=== PATIENT | female | born 2000 | race Caucasian/White ===

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

== ENCOUNTER → 2019-07-11 | Outpatient (CLI) | payer BC ==
--- NOTE | 2019-07-11 16:18 | CT ---
EXAMINATION TYPE: CT abdomen pelvis wo con DATE OF EXAM: 07/11/2019 COMPARISON: 08/30/2017 INDICATION: Abdominal pain DLP: 1181 mGycm, Automated exposure control for dose reduction was used. CONTRAST: 0 mL of Isovue 300. Study performed with Oral Contrast TECHNIQUE: Axial images were obtained from above the diaphragm to the pubic rami in the axial plane a t 5 mm thick sections. Reconstructed images are reviewed on the computer in the coronal plane. FINDINGS: Limited CT sections are obtained the lung bases. The lung bases are clear. CT ABDOMEN: Liver: There is moderate fatty infiltration liver. No discrete masses or cysts are evident. Spleen: Normal Pancreas: Normal Adrenal glands: The adrenal glands are normal. Gallbladder: Surgically absent Kidneys: No masses are evident. No hydronephrosis is present. No cysts are present. No renal stone s are evident. Aorta: Normal Inferior vena cava: Normal. CT PELVIS: Loops of bowel within the abdomen and pelvis are normal. There are loops of bowel which are incom pletely distended or lack oral contrast limiting their evaluation. Appendix: Normal as visualized. Urinary bladder: Normal. Genitourinary structures: Uterus is unremarkable. Adnexal regions are within normal limits. No free f luid is within the pelvis. Osseous structures: No suspicious lytic or sclerotic lesions. IMPRESSIONS: 1. No suspicious acute changes to account for abdominal pain.
== END | disposition home or self-care (01) ==
LOC: RADCTMAIN 14:18
PROVIDERS: ATTEND Family Medicine
DX: R10.9 Unspecified abdominal pain (principal)
CPT/HCPCS: 74176

== ENCOUNTER 2019-12-18 16:19 | Emergency (ER) | payer BC ==
[2019-12-18] MEDS ORDERED: SODIUM CHLORIDE 0.9% 1,000 ML IV STA (16:45)
--- NOTE | 2019-12-18 16:50 | ED ---
Abdominal Pain HPI - General Chief Complaint: Abdominal Pain Stated Complaint: Abd.pain Time Seen by Provider: 12/18/19 16:38 Source: patient Mode of arrival: ambulatory Limitations: no limitations - History of Present Illness Initial Comments: Patient is a 19-year-old female, , 11 week presenting to the emergency department with a chief complaint of right lower quadrant abdominal pain. States the pain started last night at 2100. States the pain appears to persistent and sharp in nature. States the pain is not related to by mouth in take. Does report some nausea but states this is her baseline throughout her whole . Denies any vomiting or diarrhea. Denies any abdominal loading. States she took Gas-X last night and was able to pass flatus but did not improve her pain. Denies any night sweats fevers or chills. Has history of cholecystectomy. No back pain or chest pain or shortness of breath. - Related Data Home Medications Medication Instructions Recorded Confirmed Ibuprofen 800 mg PO Q8H PRN 12/24/18 02/16/19 metFORMIN HCL [Glucophage] 500 mg PO DAILY 02/16/19 02/16/19 Previous Rx's Medication Instructions Recorded Cephalexin [Keflex] 500 mg PO BID 3 Days #6 cap 12/18/19 Allergies Allergy/AdvReac Type Severity Reaction Status Date / Time No Known Allergies Allergy Verified 12/18/19 16:20 Review of Systems ROS Statement: Those systems with pertinent positive or pertinent negative responses have been documented in the HPI. ROS Other: All systems not noted in ROS Statement are negative. Past Medical History Past Medical History: Diabetes Mellitus Additional Past Medical History / Comment(s): POLYCYSTIC OVARIAN SYNDROME, migraines, diet control diabetic, History of Any Multi-Drug Resistant Organisms: None Reported Past Surgical History: Cholecystectomy, Ear Surgery Additional Past Surgical History / Comment(s): tubes in peterson ears x 2. , cholecystectomy on monday august 28, 2017 Past Anesthesia/Blood Transfusion Reactions: No Reported Reaction Past Psychological History: Anxiety, Depression Smoking Status: Never smoker Past Alcohol Use History: None Reported Past Drug Use History: None Reported - Past Family History Mother Family Medical History: No Reported History General Exam Limitations: no limitations General appearance: alert, in no apparent distress, obese Head exam: Present: atraumatic, normocephalic, normal inspection Eye exam: Present: normal appearance Pupils: Present: normal accommodation ENT exam: Present: normal exam, normal oropharynx, mucous membranes moist, TM's normal bilaterally, normal external ear exam Neck exam: Present: normal inspection, full ROM. Absent: tenderness Respiratory exam: Present: normal lung sounds bilaterally. Absent: respiratory distress, wheezes Cardiovascular Exam: Present: regular rate, normal rhythm, normal heart sounds GI/Abdominal exam: Present: soft, tenderness (Mild tenderness along the border between right lower right upper quadrant. Negative McBurney point tenderness. Negative Rovsing negative after negative psoas.). Absent: distended, guarding, rebound, rigid Extremities exam: Present: normal inspection, full ROM, normal capillary refill Back exam: Present: normal inspection, full ROM. Absent: tenderness Neurological exam: Present: alert, oriented X3 Psychiatric exam: Present: normal affect, normal mood Skin exam: Present: warm, dry, intact, normal color Course Vital Signs 12/18/19 12/18/19 12/18/19 16:20 16:23 17:23 Temperature 98.1 F Pulse Rate 112 H 92 Respiratory 20 20 20 Rate Blood Pressure 121/74 115/70 O2 Sat by Pulse 99 99 Oximetry 12/18/19 12/18/19 18:00 19:00 Temperature Pulse Rate 96 95 Respiratory 20 20 Rate Blood Pressure 125/75 125/78 O2 Sat by Pulse 99 99 Oximetry Medical Decision Making - Medical Decision Making Patient is a 19-year-old female, , 11 week female presenting to emergency department with a chief complaint of abdominal pain. Symptoms began late last night without any improvement that day. Exam patient does have right- sided abdominal tenderness on the border between the right upper and right lower quadrant. Negative McBurney point, negative signs for appendicitis. Negative Byers sign. I have low suspicion for appendicitis. Nauseous at baseline during . No vomiting or diarrhea. CBC is unremarkable. CMP shows mild decrease in BUN and creatinine. GFR normal. Anuria patient does appear to have a symptomatically bacteriuria and will be treated accordingly. No vaginal bleeding or discharge of any kind. HCG serum at 58K. vitals are stable. Ultrasound shows a viable intrauterine . Patient was given 1 L of fluids in the ED. Reports some improvement in symptoms. Patient advised to follow-up with her OB, Dr. Conner. Strict return parameters were thoroughly discussed patient is understanding and agreeable. Case discussed with physician. - Lab Data Result diagrams: 12/18/19 16:40 12/18/19 16:40 Lab Results 12/18/19 12/18/19 12/18/19 Range/Units 16:40 16:40 19:30 WBC 10.0 (4.0-11.0) k/uL RBC 4.23 (3.80-5.40) m/uL Hgb 13.7 (11.4-16.0) gm/dL Hct 40.7 (34.0-46.0) % MCV 96.2 (80.0-100.0) fL MCH 32.2 (25.0-35.0) pg MCHC 33.5 (31.0-37.0) g/dL RDW 12.5 (11.5-15.5) % Plt Count 412 (150-450) k/uL Neutrophils % 66 % Lymphocytes % 27 % Monocytes % 4 % Eosinophils % 1 % Basophils % 1 % Neutrophils # 6.6 (1.3-7.7) k/uL Lymphocytes # 2.7 (1.0-4.8) k/uL Monocytes # 0.4 (0-1.0) k/uL Eosinophils # 0.1 (0-0.7) k/uL Basophils # 0.1 (0-0.2) k/uL Sodium 135 L (137-145) mmol/L Potassium 4.4 (3.5-5.1) mmol/L Chloride 105 (98-107) mmol/L Carbon Dioxide 19 L (22-30) mmol/L Anion Gap 11 mmol/L BUN 5 L (7-17) mg/dL Creatinine 0.37 L (0.52-1.04) mg/dL Est GFR (CKD-EPI)AfAm >90 (>60 ml/min/1.73 sqM) Est GFR (CKD-EPI)NonAf >90 (>60 ml/min/1.73 sqM) Glucose 112 H (74-99) mg/dL POC Glucose (mg/dL) 116 H (75-99) mg/dL POC Glu Physician Obstetrician ID Thursday, Kerry Calcium 10.1 (8.4-10.2) mg/dL Total Bilirubin 0.4 (0.2-1.3) mg/dL AST 25 (14-36) U/L ALT 12 (4-34) U/L Alkaline Phosphatase 82 (38-126) U/L Total Protein 7.9 (6.3-8.2) g/dL Albumin 4.7 (3.5-5.0) g/dL Amylase <30 L (30-110) U/L Lipase 58 (23-300) U/L HCG, Quant 00820.0 mIU/mL Urine Color Urine Appearance (Clear) Urine pH (5.0-8.0) Ur Specific Dougherty (1.001-1.035) Urine Protein (Negative) Urine Glucose (UA) (Negative) Urine Ketones (Negative) Urine Blood (Negative) Urine Nitrite (Negative) Urine Bilirubin (Negative) Urine Urobilinogen (<2.0) mg/dL Ur Leukocyte Esterase (Negative) Urine RBC (0-5) /hpf Urine WBC (0-5) /hpf Ur Squamous Epith Cells (0-4) /hpf Urine Bacteria (None) /hpf Urine Mucus (None) /hpf 12/18/19 Range/Units 19:36 WBC (4.0-11.0) k/uL RBC (3.80-5.40) m/uL Hgb (11.4-16.0) gm/dL Hct (34.0-46.0) % MCV (80.0-100.0) fL MCH (25.0-35.0) pg MCHC (31.0-37.0) g/dL RDW (11.5-15.5) % Plt Count (150-450) k/uL Neutrophils % % Lymphocytes % % Monocytes % % Eosinophils % % Basophils % % Neutrophils # (1.3-7.7) k/uL Lymphocytes # (1.0-4.8) k/uL Monocytes # (0-1.0) k/uL Eosinophils # (0-0.7) k/uL Basophils # (0-0.2) k/uL Sodium (137-145) mmol/L Potassium (3.5-5.1) mmol/L Chloride (98-107) mmol/L Carbon Dioxide (22-30) mmol/L Anion Gap mmol/L BUN (7-17) mg/dL Creatinine (0.52-1.04) mg/dL Est GFR (CKD-EPI)AfAm (>60 ml/min/1.73 sqM) Est GFR (CKD-EPI)NonAf (>60 ml/min/1.73 sqM) Glucose (74-99) mg/dL POC Glucose (mg/dL) (75-99) mg/dL POC Glu Physician Obstetrician ID Calcium (8.4-10.2) mg/dL Total Bilirubin (0.2-1.3) mg/dL AST (14-36) U/L ALT (4-34) U/L Alkaline Phosphatase (38-126) U/L Total Protein (6.3-8.2) g/dL Albumin (3.5-5.0) g/dL Amylase (30-110) U/L Lipase (23-300) U/L HCG, Quant mIU/mL Urine Color Yellow Urine Appearance Clear (Clear) Urine pH 5.0 (5.0-8.0) Ur Specific Dougherty 1.027 (1.001-1.035) Urine Protein Trace H (Negative) Urine Glucose (UA) Negative (Negative) Urine Ketones 1+ H (Negative) Urine Blood Negative (Negative) Urine Nitrite Negative (Negative) Urine Bilirubin Negative (Negative) Urine Urobilinogen <2.0 (<2.0) mg/dL Ur Leukocyte Esterase Trace H (Negative) Urine RBC 1 (0-5) /hpf Urine WBC 2 (0-5) /hpf Ur Squamous Epith Cells 4 (0-4) /hpf Urine Bacteria Rare H (None) /hpf Urine Mucus Moderate H (None) /hpf Disposition Clinical Impression: Abdominal pain during , Asymptomatic bacteriuria Disposition: HOME SELF-CARE Condition: Stable Instructions (If sedation given, give patient instructions): Abdominal Pain in (ED) Additional Instructions: Take prescribed medication as directed. Follow-up with primary care. Return to emergency department with symptoms worsen. Prescriptions: Cephalexin [Keflex] 500 mg PO BID 3 Days #6 cap Is patient prescribed a controlled substance at d/c from ED?: No Referrals: Ariel Kelley MD [Primary Care Provider] - 1-2 days Time of Disposition: 20:03
[2019-12-18 16:57] LABS: Basophils % (A) 1 %; Eosinophils # (A) 0.1 k/uL (0-0.7); Eosinophils % (A) 1 %; HCT 40.7 % (34.0-46.0); HGB 13.7 gm/dL (11.4-16.0); Lymphocytes # (A) 2.7 k/uL (1.0-4.8); Lymphocytes % (A) 27 %; MCH 32.2 pg (25.0-35.0); MCHC 33.5 g/dL (31.0-37.0); MCV 96.2 fL (80.0-100.0); Mean Platelet Volume 7.5; Monocytes # (A) 0.4 k/uL (0-1.0); Monocytes % (A) 4 %; Neutrophils # (A) 6.6 k/uL (1.3-7.7); Neutrophils % (A) 66 %; Platelet Count 412 k/uL (150-450); RBC 4.23 m/uL (3.80-5.40); RDW 12.5 % (11.5-15.5)
[2019-12-18 16:58] LABS: Basophils # (A) 0.1 k/uL (0-0.2)
[2019-12-18 18:28] LABS: ALT 12 U/L (4-34); AST 25 U/L (14-36); African American GFR (CKD) >90 (>60 ml/min/1.73 sqM); Albumin 4.7 g/dL (3.5-5.0); Alkaline Phosphatase 82 U/L (38-126); Amylase <30 U/L (30-110); Anion Gap 11 mmol/L; Blood Urea Nitrogen 5 mg/dL (7-17); Calcium 10.1 mg/dL (8.4-10.2); Carbon Dioxide 19 mmol/L (22-30); Chloride 105 mmol/L (98-107); Glucose 112 mg/dL (74-99); Non-African American GFR(CKD) >90 (>60 ml/min/1.73 sqM); Potassium 4.4 mmol/L (3.5-5.1); Sodium 135 mmol/L (137-145); Total Bilirubin 0.4 mg/dL (0.2-1.3); Total Protein 7.9 g/dL (6.3-8.2)
--- NOTE | 2019-12-18 18:44 | US ---
EXAMINATION TYPE: Transabdominal DATE OF EXAM: 12/18/2019 6:32 PM COMPARISON: NONE CLINICAL HISTORY: abd pain . RLQ pain with EXAM PERFORMED: Transabdominal (TA) EXAM MEASUREMENTS: GESTATIONAL AGE / DATING Physician Established: (11 weeks/1 days) EDC: 07/07/2020 Dates by LMP: does not correlate per patient Dates by First Scan: No previous this is first scan Dates by Current Scan for: (11 weeks/3 days) EDC: 07/05/2020 MATERNAL ANATOMY Uterus: 12.0 x 6.7 x 7.1 cm Right Ovary: 2.9 x 1.7 x 2.6 cm Left Ovary: 2.5 x 1.7 x 2.4 cm Post CDS / Adnexa: wnl Presence of free fluid: none GESTATION / SURVEY CRL: 4.6 cm (11 weeks/3 days) Yolk Sac (normal less than 6mm): 0.5 cm Heart Rate: 165 bpm Rhythm: Normal IUP: Viable IUP Date of LMP: does not correlate per patient Beta HcG (if available): Viable IUP that correlates with Doctors due date provided by patient. IMPRESSION: No complicating process seen.
[2019-12-18 19:32] LABS: Glucose,Whole Blood 116 mg/dL (75-99)
[2019-12-18 19:47] LABS: Appearance,Urine Clear (Clear); Bacteria,Urine Rare /hpf; Bilirubin,Urine Negative (Negative); Blood,Urine Negative (Negative); Color,Urine Yellow; Glucose,Urine (UA) Negative (Negative); Ketones,Urine 1+ (Negative); Leukocyte Esterase,Urine Trace (Negative); Mucus,Urine Moderate /hpf; Nitrite,Urine Negative (Negative); Protein,Urine Trace (Negative); RBC,Urine 1 /hpf (0-5); Specific Gravity,Urine 1.027 (1.001-1.035); Squamous Epithelial Cell,Urine 4 /hpf (0-4); Urobilinogen,Urine <2.0 mg/dL (<2.0); WBC,Urine 2 /hpf (0-5)
[2019-12-18 20:12] VITALS: BP 128/87; PULSE 87; RESP 18; TEMP 98.4
== END 2019-12-18 20:12 | disposition home or self-care (01) ==
LOC: EC 16:19
DX: O26.891 Other specified pregnancy related conditions, first trimester (principal); R10.31 Right lower quadrant pain; O99.89 Other specified diseases and conditions complicating pregnancy, childbirth and the puerperium; R82.71 Bacteriuria; O99.281 Endocrine, nutritional and metabolic diseases complicating pregnancy, first trimester; E11.9 Type 2 diabetes mellitus without complications; Z3A.11 11 weeks gestation of pregnancy; Z79.84 Long term (current) use of oral hypoglycemic drugs; Z90.49 Acquired absence of other specified parts of digestive tract
CPT/HCPCS: 36415; 76801; 80053; 81001; 82150; 83690; 84702; 85025; 96360; 96361; 99284

== ENCOUNTER 2020-03-29 09:17 | Observation (INO) | payer BC ==
[2020-03-29] MEDS ORDERED: AMPICILLIN 2,000 MG in SODIUM CHLORIDE 0.9% 100 ML IVPB STA (10:07)
[2020-03-29] MEDS: BETAMET ACET-BETAMETH SOD PHOS 6 MG/ML MDV IM SCH (10:51)
[2020-03-29] MEDS: LACTATED RINGERS 1,000 ML IV SCH (10:55)
--- NOTE | 2020-03-29 11:35 | US ---
EXAMINATION TYPE: US OB >= 14 wk fetus DATE OF EXAM: 03/29/2020 COMPARISON: None CLINICAL HISTORY: srom yesterday TECHNIQUE: Transabdominal (TA) GESTATIONAL AGE / DATING Physician Established: (25 weeks/5days) EDC: 07/07/2020 Dates by LMP: 25 weeks/5days) EDC: 07/07/2020 Dates by First Scan: (26 weeks/1 days) EDC: 07/05/2020 Dates by Current Scan: (28 weeks/0 days) EDC: 06/21/2020 SURVEY IUP: Single PLACENTA: Fundal PREVIA: No Previa RACHELL: 19.7 cm Upper limits of normal CERVICAL LENGTH (transabdominal: norm > 3.0cm): 4.3 cm BIOMETRY PRESENTATION: Vertex LIE: Longitudinal BPD: 6.7 cm 27 weeks / 1 days HC: 25.8 cm 28 weeks / 0 days AC: 24.9 cm 29 weeks / 1 days FL: 5.16 cm 27 weeks / 4 days ESTIMATED WEIGHT IN GRAMS: 1211 grams ESTIMATED WEIGHT IN LBS/OZ: 2 lbs. 11 oz. WEIGHT PERCENTAGE BASED ON ESTABLISHED DATES: >98% HC/AC: 1.04 Normal FL/AC: 21% Normal HEART RATE: 155 bpm RHYTHM: Normal Viable IUP with an KEVIN of 06/21/[address] Conner in room at time of exam IMPRESSION: Single viable intrauterine corresponding to ultrasound age 20 weeks 0 days with estimated d ate of delivery 06/21/2020 by today's exam, normal amniotic fluid index
[2020-03-29 13:08] LABS: Basophils % (A) 0 %; Eosinophils # (A) 0.1 k/uL (0-0.7); Eosinophils % (A) 0 %; HCT 36.2 % (34.0-46.0); HGB 11.7 gm/dL (11.4-16.0); Lymphocytes # (A) 1.3 k/uL (1.0-4.8); Lymphocytes % (A) 10 %; MCH 32.3 pg (25.0-35.0); MCHC 32.3 g/dL (31.0-37.0); MCV 99.9 fL (80.0-100.0); Mean Platelet Volume 7.5; Monocytes # (A) 0.3 k/uL (0-1.0); Monocytes % (A) 3 %; Neutrophils # (A) 10.4 k/uL (1.3-7.7); Neutrophils % (A) 85 %; Platelet Count 343 k/uL (150-450); RBC 3.63 m/uL (3.80-5.40); WBC 12.2 k/uL (3.8-10.6)
--- NOTE | 2020-03-29 13:21 | P.HPOB ---
History of Present Illness H&P Date: 03/29/20 Chief Complaint: IUP @ 25 5/7 weeks, LOF This is a 20-year-old 1 para 0 at 25-5/7 weeks with an estimated date of confinement of 07/07/2020. EDC is based on 8 week ultrasound. Patient is a known type II diabetic and has been using metformin and PM insulin for BS c ontrol. Patient has been seen [facility] in conjunction with myself for care. Patient states she noted yesterday a little bit of increased leakage of watery/mucus discharge after urination. Patient stated she became a little crampy with discharge again today therefore presented to OB triage. While in OB triage heart tones were noted to be normal, immature was obtained and found to be positive. records are reviewed on labs she has a blood type of O+, rubella status is nonimmune, RPR is nonreactive, hepatitis B surface antigen is negative, HIV is negative, patient's hemoglobin A1c on December 14 was 7.6. Review of Systems Constitutional: Denies chills, Denies fatigue, Denies fever Ears, nose, mouth and throat: Denies headache Cardiovascular: Reports leg edema Respiratory: Denies dyspnea Gastrointestinal: Denies constipation, Denies diarrhea, Denies nausea, Denies vomiting Genitourinary: Reports Past Medical History Past Medical History: Diabetes Mellitus Additional Past Medical History / Comment(s): POLYCYSTIC OVARIAN SYNDROME, migraines, diet control diabetic, History of Any Multi-Drug Resistant Organisms: None Reported Past Surgical History: Cholecystectomy, Ear Surgery Additional Past Surgical History / Comment(s): tubes in peterson ears x 2. , cholecystectomy on monday august 28, 2017 Past Anesthesia/Blood Transfusion Reactions: No Reported Reaction Smoking Status: Never smoker - Past Family History Mother Family Medical History: No Reported History Medications and Allergies Home Medications Medication Instructions Recorded Confirmed Type metFORMIN HCL [Glucophage] 500 mg PO BID 02/16/19 03/29/20 History Insulin NPH Human Isophane 46 units SQ HS 03/29/20 03/29/20 History [NovoLIN N] Pnv,Calcium 72/Iron/Folic Acid 1 each PO DAILY 03/29/20 03/29/20 History [ Plus Tablet] Allergies Allergy/AdvReac Type Severity Reaction Status Date / Time No Known Allergies Allergy Verified 02/02/20 16:20 Exam Osteopathic Statement: *. No significant issues noted on an osteopathic str uctural exam other than those noted in the History and Physical/Consult. Intake and Output 03/28/20 03/29/20 03/29/20 22:59 06:59 14:59 Other: Weight 119.295 kg Targeted physical exam is performed in this date and [employer] a well-nourished well-developed female in no obvious distress, breathing is noted to be nonlabored heart has a regular rhythm abdomen is gravid operative for gestational age, heart tones are appropriate for gestational age, positive amnio sure is reviewed with the patient cervical exam is deferred at this time. Results Result Diagrams: 03/29/20 12:37 Abnormal Lab Results - Last 24 Hours (Table) 03/29/20 Range/Units 12:37 WBC 12.2 H (3.8-10.6) k/uL RBC 3.63 L (3.80-5.40) m/uL Neutrophils # 10.4 H (1.3-7.7) k/uL Assessment and Plan (1) 25 weeks gestation of Current Visit: Yes Status: Acute Code(s): Z3A.25 - 25 WEEKS GESTATION OF SNOMED Code(s): 78315538 (2) ROM (rupture of membranes), premature Current Visit: Yes Status: Acute Code(s): O42.90 - CHARITO ROM, 7TH0 BETW RUPT & ONST LABR, UNSP WEEKS OF GEST SNOMED Code(s): 02345373 (3) Diabetes Current Visit: Yes Status: Acute Code(s): E11.9 - TYPE 2 DIABETES MELLITUS WITHOUT COMPLICATIONS SNOMED Code(s): 49582619 Plan: On her initial assessment ultrasound/betamethasone/ampicillin therapy was begun. Bedside ultrasound (for which I was present for), amniotic fluid index was noted to 19.7, efw 2-11 (1211 gm) 98%ile, CL 4.3 TA measurement, baby was noted to be in vertex presentation. Patient had no further leaking while in triage. Her under buttocks drape was noted to be dry. Given her RACHELL of 19.7 we'll monitor patient here at [facility], unless increased leakage is noted. I will plan to repeat amniotic fluid index at 1800. Should patient start leaking fluid while here on the unit MFM consult for possible transfer of care will be made. I do suspect this is a false positive amnisure given her amniotic fluid index of 19. Plan to keep the patient nothing by mouth until follow-up ultrasound at 1800.
[2020-03-29 16:07] LABS: Appearance,Urine Clear (Clear); Bilirubin,Urine Negative (Negative); Blood,Urine Negative (Negative); Color,Urine Yellow; Glucose,Urine (UA) Negative (Negative); Hyaline Casts,Urine 1 /lpf (0-2); Ketones,Urine Negative (Negative); Leukocyte Esterase,Urine Small (Negative); Mucus,Urine Rare /hpf; Nitrite,Urine Negative (Negative); Protein,Urine Negative (Negative); Squamous Epithelial Cell,Urine 2 /hpf (0-4); Urobilinogen,Urine <2.0 mg/dL (<2.0); WBC,Urine 4 /hpf (0-5)
[2020-03-29] MEDS: AMPICILLIN 1,000 MG in SODIUM CHLORIDE 0.9% 50 ML IVPB SCH ×3 (16:11→23:38)
--- NOTE | 2020-03-29 16:33 | P.PN ---
Progress Note - Text Progress Note Date: 03/29/20 In to evaluate patient for any further leaking of fluid, mucus. Patient states when she was up to the bathroom she did note a couple of trips. She denies any leakage in the bed and she has been sitting up and moving around. On physical exam vaginal opening is dry no leaking with cough no leaking is noted or drainage. Cervix appears posterior soft closed. Patient states she is noting some occasional menstrual-like cramps but appears comfortable, no vaginal bleeding is noted. Will plan to continue observation, repeat ultrasound for RACHELL due at 1800 Plan of observation is discussed with the patient and father of the baby questions are answered, will continue to monitor closely
--- NOTE | 2020-03-29 19:57 | US ---
EXAMINATION TYPE: US OB limited DATE OF EXAM: 03/29/2020 COMPARISON: US same day CLINICAL HISTORY: recheck rachell at 1800. 25 and 03/22. Recheck RACHELL. Reported spontaneous rupture of membr anes yesterday. EXAM PERFORMED: Transabdominal (TA) GESTATIONAL AGE / DATING Physician Established: (25 weeks/5 days) EDC: 07/07/2020 No growth performed on today?s study per ordering physician SURVEY RACHELL: 18.4 cm Upper limits of normal Earlier exam same date 19.7 cm. HEART RATE: 167 bpm RHYTHM: Normal IMPRESSION: 1. RACHELL of 18.4 cm at 1930 hours. This measured 19.7 at 1025 hours same date.
[2020-03-29] MEDS ORDERED: INSULIN NPH 300 UNIT/3 ML VIAL SQ SCH (21:00)
[2020-03-29 21:10] LABS: Glucose,Whole Blood 190 mg/dL (75-99)
[2020-03-29] MEDS: metFORMIN 500 MG TAB PO SCH (23:29)
[2020-03-30] MEDS: AMPICILLIN 1,000 MG in SODIUM CHLORIDE 0.9% 50 ML IVPB SCH ×3 (04:04→12:46)
[2020-03-30] MEDS: LACTATED RINGERS 1,000 ML IV SCH (04:06)
[2020-03-30] MEDS ORDERED: LACTATED RINGERS 1,000 ML IV SCH (04:15)
[2020-03-30 06:27] LABS: Glucose,Whole Blood 213 mg/dL (75-99)
[2020-03-30] MEDS ORDERED: metFORMIN 500 MG TAB PO SCH (07:30)
[2020-03-30] MEDS: metFORMIN 500 MG TAB PO SCH (08:26)
[2020-03-30 08:40] VITALS: BP 114/72; PULSE 110; RESP 16; TEMP 97.1
--- NOTE | 2020-03-30 08:51 | P.PN ---
Subjective Progress Note Date: 03/30/20 Principal diagnosis: IUP @ 25 5/7 weeks, watery discharge Overnight patient states she did have a few drops while on the toilet. Patient has had no discharge noted on the mother's pad overnight. Patient has had no bleeding overnight. Patient states she has had minimal bilateral groin cramping. Fetus has been active. Heart tones have been dopplered last night and this morning normal in nature. Objective - Vital Signs Vital signs: Vital Signs Temp 97.1 F L 03/30/20 08:00 Pulse 110 H 03/30/20 08:00 Resp 16 03/30/20 08:00 BP 114/72 03/30/20 08:00 Pulse Ox 99 03/30/20 00:00 Intake & Output 03/29/20 03/30/20 03/30/20 18:59 06:59 18:59 Weight 119.295 kg Other: # Voids 2 1 - Constitutional General appearance: Present: average body habitus, cooperative, no acute distress - Gastrointestinal Gastrointestinal Comment(s): Abdomen gravid nontender - Genitourinary Genitourinary Comment(s): Inspection of patient's vaginal vault reveals no leakage of fluid, attempted to elicit leaking with cough, Valsalva no leakage noted by myself for RN. - Psychiatric Psychiatric: Present: A&O x's 3, appropriate affect, intact judgment & insight - Labs CBC & Chem 7: 03/29/20 12:37 Labs: Abnormal Lab Results - Last 24 Hours (Table) 03/29/20 03/29/20 03/29/20 Range/Units 12:37 13:00 21:09 WBC 12.2 H (3.8-10.6) k/uL RBC 3.63 L (3.80-5.40) m/uL Neutrophils # 10.4 H (1.3-7.7) k/uL POC Glucose (mg/dL) 190 H (75-99) mg/dL Ur Leukocyte Esterase Small H (Negative) Urine Mucus Rare H (None) /hpf 03/30/20 Range/Units 06:25 WBC (3.8-10.6) k/uL RBC (3.80-5.40) m/uL Neutrophils # (1.3-7.7) k/uL POC Glucose (mg/dL) 213 H (75-99) mg/dL Ur Leukocyte Esterase (Negative) Urine Mucus (None) /hpf Assessment and Plan (1) 25 weeks gestation of Current Visit: Yes Status: Acute Code(s): Z3A.25 - 25 WEEKS GESTATION OF SNOMED Code(s): 47617039 (2) ROM (rupture of membranes), premature Current Visit: Yes Status: Acute Code(s): O42.90 - CHARITO ROM, 7TH0 BETW RUPT & ONST LABR, UNSP WEEKS OF GEST SNOMED Code(s): 10574689 (3) Diabetes Current Visit: Yes Status: Acute Code(s): E11.9 - TYPE 2 DIABETES MELLITUS WITHOUT COMPLICATIONS SNOMED Code(s): 89065202 (4) Vaginal discharge during in second trimester Current Visit: Yes Status: Acute Code(s): O26.892 - OTH RELATED CONDITIONS, SECOND TRIMESTER; N89.8 - OTHER SPECIFIED NONINFLAMMATORY DISORDERS OF VAGINA SNOMED Code(s): 199099691 Plan: Discussed with patient the plan for the morning, will plan to repeat amnisure today, repeat amniotic fluid index at 11. We will call M this morning and discuss case with them in addition.
[2020-03-30] MEDS ORDERED: PRENATAL VIT-IRON-FOLIC ACID 1 EACH CAP PO SCH (09:00)
--- NOTE | 2020-03-30 09:44 | US ---
EXAMINATION TYPE: US OB limited DATE OF EXAM: 03/30/2020 COMPARISON: 03/29/2020 CLINICAL HISTORY: watery d/c. EXAM PERFORMED: abdominal GESTATIONAL AGE / DATING Physician Established: (25 weeks/6 days) EDC: 10/01/19 No growth performed on today?s study per ordering physician SURVEY RACHELL: 21.7 cm Ultrasound evidence of premature rupture of membranes? No HEART RATE: 163 bpm RHYTHM: Normal IMPRESSION: Limited exam performed for possible premature rupture of membranes demonstrates a viable of 25 weeks 6 days and heart rate 163 bpm. There is made the RACHELL measures 21.7 cm correlat e clinically. Previously measured 18.4 cm at the upper limits of normal.
[2020-03-30 10:19] LABS: Glucose,Whole Blood 182 mg/dL (75-99)
[2020-03-30] MEDS: BETAMET ACET-BETAMETH SOD PHOS 6 MG/ML MDV IM SCH (10:20)
--- NOTE | 2020-03-30 13:26 | P.PN ---
Subjective Progress Note Date: 03/30/20 Principal diagnosis: IUP @ 25 5/7 weeks, watery discharge Overnight patient states she did have a few drops while on the toilet. Patient has had no discharge noted on the mother's pad overnight. Patient has had no bleeding overnight. Patient states she has had minimal bilateral groin cramping. Fetus has been active. Heart tones have been dopplered last night and this morning normal in nature. this am US was preformed for repeat jesús, and repeat amnisure. jesús noted to be 21, with faitn pos amnisure. Pt denies any new concerns for me this afternoon Objective - Vital Signs Vital signs: Vital Signs Temp 97.1 F L 03/30/20 08:00 Pulse 110 H 03/30/20 08:00 Resp 16 03/30/20 08:00 BP 114/72 03/30/20 08:00 Pulse Ox 99 03/30/20 00:00 Intake & Output 03/29/20 03/30/20 03/30/20 18:59 06:59 18:59 Weight 119.295 kg Other: # Voids 2 1 - Labs CBC & Chem 7: 03/29/20 12:37 Labs: Abnormal Lab Results - Last 24 Hours (Table) 03/29/20 03/29/20 03/30/20 Range/Units 13:00 21:09 06:25 POC Glucose (mg/dL) 190 H 213 H (75-99) mg/dL Ur Leukocyte Esterase Small H (Negative) Urine Mucus Rare H (None) /hpf 03/30/20 Range/Units 10:17 POC Glucose (mg/dL) 182 H (75-99) mg/dL Ur Leukocyte Esterase (Negative) Urine Mucus (None) /hpf Assessment and Plan (1) 25 weeks gestation of Current Visit: Yes Status: Acute Code(s): Z3A.25 - 25 WEEKS GESTATION OF SNOMED Code(s): 03876618 (2) ROM (rupture of membranes), premature Current Visit: Yes Status: Acute Code(s): O42.90 - CHARITO ROM, 7TH0 BETW RUPT & ONST LABR, UNSP WEEKS OF GEST SNOMED Code(s): 24015082 (3) Diabetes Current Visit: Yes Status: Acute Code(s): E11.9 - TYPE 2 DIABETES MELLITUS WITHOUT COMPLICATIONS SNOMED Code(s): 62597054 (4) Vaginal discharge during in second trimester Current Visit: Yes Status: Acute Code(s): O26.892 - OTH RELATED CONDITIONS, SECOND TRIMESTER; N89.8 - OTHER SPECIFIED NONINFLAMMATORY DISORDERS OF VAGINA SNOMED Code(s): 066376849 Plan: MFM was consulted and they would like transfer for inpatient observation given the positive amnisure. she will be transferred to [facility] in [place]. she has received betamethasone x 2, along with 24 hours of ampicillin. she is stable for transfer. [facility] states she understand the need for transfer and I did answer multiple questions as well
== END 2020-03-30 14:20 | disposition home or self-care (01) ==
LOC: FBPOP 09:17 → 4FBP 12:24
PROVIDERS: ADMIT Obstetrics & Gynecology Obstetrics; ATTEND Obstetrics & Gynecology Obstetrics
DX: O42.912 Preterm premature rupture of membranes, unspecified as to length of time between rupture and onset of labor, second trimester (principal); O24.312 Unspecified pre-existing diabetes mellitus in pregnancy, second trimester; E11.9 Type 2 diabetes mellitus without complications; O26.892 Other specified pregnancy related conditions, second trimester; N89.8 Other specified noninflammatory disorders of vagina; O99.282 Endocrine, nutritional and metabolic diseases complicating pregnancy, second trimester; E28.2 Polycystic ovarian syndrome; O99.352 Diseases of the nervous system complicating pregnancy, second trimester; G43.909 Migraine, unspecified, not intractable, without status migrainosus; Z3A.25 25 weeks gestation of pregnancy; Z79.4 Long term (current) use of insulin; Z90.49 Acquired absence of other specified parts of digestive tract; Z98.890 Other specified postprocedural states; Z96.22 Myringotomy tube(s) status
CPT/HCPCS: 96365; 96366; 96372 ×2; 85025; 81001; 76805; 76815; G0378 ×2; J0702 ×2; J0290 ×3

== ENCOUNTER 2022-02-26 15:35 | Emergency (ER) | payer BC ==
[2022-02-26 16:05] VITALS: BP 125/76; PULSE 91; RESP 16; TEMP 98.8
--- NOTE | 2022-02-26 16:12 | ED ---
General Adult HPI - General Chief complaint: Vaginal Bleeding Stated complaint: 7 Weeks Preg., Bleeding Time Seen by Provider: 02/26/22 16:10 Source: patient Mode of arrival: ambulatory Limitations: no limitations - History of Present Illness Initial comments: Kyung is a 22yo F female who estimates she is 7wks , LMP 3/4, first positive test last week. No imaging or OB follow up yet. Today she began having spotting so she came to the ER for evaluation. - Related Data Home Medications Medication Instructions Recorded Confirmed No Known Home Medications 02/26/22 02/26/22 Allergies Allergy/AdvReac Type Severity Reaction Status Date / Time No Known Allergies Allergy Verified 02/26/22 16:28 Review of Systems ROS Statement: Those systems with pertinent positive or pertinent negative responses have been documented in the HPI. ROS Other: All systems not noted in ROS Statement are negative. Past Medical History Past Medical History: Diabetes Mellitus Additional Past Medical History / Comment(s): POLYCYSTIC OVARIAN SYNDROME, migraines, diet control diabetic, History of Any Multi-Drug Resistant Organisms: None Reported Past Surgical History: Cholecystectomy, Ear Surgery Additional Past Surgical History / Comment(s): tubes in peterson ears x 2. , cholecystectomy on monday august 28, 2017 Past Anesthesia/Blood Transfusion Reactions: No Reported Reaction Past Psychological History: Anxiety, Depression Smoking Status: Never smoker Past Alcohol Use History: None Reported Past Drug Use History: None Reported - Past Family History Mother Family Medical History: No Reported History General Exam Limitations: no limitations Course Vital Signs 02/26/22 16:02 Temperature 98.8 F Pulse Rate 91 Respiratory 16 Rate Blood Pressure 125/76 O2 Sat by Pulse 97 Oximetry Medical Decision Making - Medical Decision Making History was obtained from patient, labs are obtained, beta hCG is only 36 indicating very early or termination. Ultrasound revealed no intrauterine no evidence of ectopic. Results were discussed with the patient, I recommended serial beta hCG until hCG is increasing appropriately or return to 0. I did advise the patient that if her beta hCG does not return to 0 she needs to follow closely with OB for further evaluation of possible retained products or development of complications. She follows with Dr. Conner. - Lab Data Result diagrams: 02/26/22 16:24 02/26/22 16:24 Lab Results 04/13/22 04/13/22 04/13/22 Range/Units 16:24 16:24 16:24 WBC 9.7 (3.8-10.6) k/uL RBC 4.26 (3.80-5.40) m/uL Hgb 14.4 (11.4-16.0) gm/dL Hct 41.3 (34.0-46.0) % MCV 97.1 (80.0-100.0) fL MCH 33.8 (25.0-35.0) pg MCHC 34.8 (31.0-37.0) g/dL RDW 12.2 (11.5-15.5) % Plt Count 441 (150-450) k/uL MPV 7.7 Neutrophils % 60 % Lymphocytes % 30 % Monocytes % 5 % Eosinophils % 2 % Basophils % 1 % Neutrophils # 5.9 (1.3-7.7) k/uL Lymphocytes # 2.9 (1.0-4.8) k/uL Monocytes # 0.5 (0-1.0) k/uL Eosinophils # 0.2 (0-0.7) k/uL Basophils # 0.1 (0-0.2) k/uL Sodium 136 L (137-145) mmol/L Potassium 4.1 (3.5-5.1) mmol/L Chloride 104 (98-107) mmol/L Carbon Dioxide 21 L (22-30) mmol/L Anion Gap 11 mmol/L BUN 9 (7-17) mg/dL Creatinine 0.45 L (0.52-1.04) mg/dL Est GFR (CKD-EPI)AfAm >90 (>60 ml/min/1.73 sqM) Est GFR (CKD-EPI)NonAf >90 (>60 ml/min/1.73 sqM) Glucose 204 H (74-99) mg/dL Calcium 9.6 (8.4-10.2) mg/dL Total Bilirubin 0.4 (0.2-1.3) mg/dL AST 23 (14-36) U/L ALT 13 (4-34) U/L Alkaline Phosphatase 85 (38-126) U/L Total Protein 7.6 (6.3-8.2) g/dL Albumin 4.5 (3.5-5.0) g/dL HCG, Quant 32.7 mIU/mL Urine Color Urine Appearance (Clear) Urine pH (5.0-8.0) Ur Specific [place] (1.001-1.035) Urine Protein (Negative) Urine Glucose (UA) (Negative) Urine Ketones (Negative) Urine Blood (Negative) Urine Nitrite (Negative) Urine Bilirubin (Negative) Urine Urobilinogen (<2.0) mg/dL Ur Leukocyte Esterase (Negative) Urine RBC (0-5) /hpf Urine WBC (0-5) /hpf Ur Squamous Epith Cells (0-4) /hpf Urine Mucus (None) /hpf Blood Type O Positive Blood Type Recheck No Previous Record Bld Type Recheck Status [facility] ONLY 02/26/22 Range/Units 16:26 WBC (3.8-10.6) k/uL RBC (3.80-5.40) m/uL Hgb (11.4-16.0) gm/dL Hct (34.0-46.0) % MCV (80.0-100.0) fL MCH (25.0-35.0) pg MCHC (31.0-37.0) g/dL RDW (11.5-15.5) % Plt Count (150-450) k/uL MPV Neutrophils % % Lymphocytes % % Monocytes % % Eosinophils % % Basophils % % Neutrophils # (1.3-7.7) k/uL Lymphocytes # (1.0-4.8) k/uL Monocytes # (0-1.0) k/uL Eosinophils # (0-0.7) k/uL Basophils # (0-0.2) k/uL Sodium (137-145) mmol/L Potassium (3.5-5.1) mmol/L Chloride (98-107) mmol/L Carbon Dioxide (22-30) mmol/L Anion Gap mmol/L BUN (7-17) mg/dL Creatinine (0.52-1.04) mg/dL Est GFR (CKD-EPI)AfAm (>60 ml/min/1.73 sqM) Est GFR (CKD-EPI)NonAf (>60 ml/min/1.73 sqM) Glucose (74-99) mg/dL Calcium (8.4-10.2) mg/dL Total Bilirubin (0.2-1.3) mg/dL AST (14-36) U/L ALT (4-34) U/L Alkaline Phosphatase (38-126) U/L Total Protein (6.3-8.2) g/dL Albumin (3.5-5.0) g/dL HCG, Quant mIU/mL Urine Color Yellow Urine Appearance Clear (Clear) Urine pH 5.5 (5.0-8.0) Ur Specific [place] 1.033 (1.001-1.035) Urine Protein Trace H (Negative) Urine Glucose (UA) 4+ H (Negative) Urine Ketones 1+ H (Negative) Urine Blood Small H (Negative) Urine Nitrite Negative (Negative) Urine Bilirubin Negative (Negative) Urine Urobilinogen <2.0 (<2.0) mg/dL Ur Leukocyte Esterase Negative (Negative) Urine RBC <1 (0-5) /hpf Urine WBC 3 (0-5) /hpf Ur Squamous Epith Cells 1 (0-4) /hpf Urine Mucus Rare H (None) /hpf Blood Type Blood Type Recheck Bld Type Recheck Status Disposition Clinical Impression: Vaginal bleeding in patient at less than 20 weeks gestation Disposition: HOME SELF-CARE Condition: Stable Additional Instructions: Recommend pelvic rest, follow up with OB for repeat blood tests Is patient prescribed a controlled substance at d/c from ED?: No Referrals: Ariel Kelley MD [Primary Care Provider] - 1-2 days
[2022-02-26 16:36] LABS: Appearance,Urine Clear (Clear); Bilirubin,Urine Negative (Negative); Blood,Urine Small (Negative); Color,Urine Yellow; Glucose,Urine (UA) 4+ (Negative); Ketones,Urine 1+ (Negative); Leukocyte Esterase,Urine Negative (Negative); Mucus,Urine Rare /hpf; Nitrite,Urine Negative (Negative); PH, Urine 5.5 (5.0-8.0); Protein,Urine Trace (Negative); RBC,Urine <1 /hpf (0-5); Specific Gravity,Urine 1.033 (1.001-1.035); Squamous Epithelial Cell,Urine 1 /hpf (0-4); Urobilinogen,Urine <2.0 mg/dL (<2.0); WBC,Urine 3 /hpf (0-5)
[2022-02-26 16:58] LABS: Basophils # (A) 0.1 k/uL (0-0.2); Basophils % (A) 1 %; Eosinophils # (A) 0.2 k/uL (0-0.7); Eosinophils % (A) 2 %; HCT 41.3 % (34.0-46.0); HGB 14.4 gm/dL (11.4-16.0); Lymphocytes # (A) 2.9 k/uL (1.0-4.8); Lymphocytes % (A) 30 %; MCH 33.8 pg (25.0-35.0); MCHC 34.8 g/dL (31.0-37.0); MCV 97.1 fL (80.0-100.0); Mean Platelet Volume 7.7; Monocytes # (A) 0.5 k/uL (0-1.0); Monocytes % (A) 5 %; Neutrophils # (A) 5.9 k/uL (1.3-7.7); Neutrophils % (A) 60 %; Platelet Count 441 k/uL (150-450); RBC 4.26 m/uL (3.80-5.40); RDW 12.2 % (11.5-15.5); WBC 9.7 k/uL (3.8-10.6)
[2022-02-26 17:03] LABS: ALT 13 U/L (4-34); AST 23 U/L (14-36); African American GFR (CKD) >90 (>60 ml/min/1.73 sqM); Albumin 4.5 g/dL (3.5-5.0); Alkaline Phosphatase 85 U/L (38-126); Anion Gap 11 mmol/L; Blood Urea Nitrogen 9 mg/dL (7-17); Calcium 9.6 mg/dL (8.4-10.2); Carbon Dioxide 21 mmol/L (22-30); Chloride 104 mmol/L (98-107); Glucose 204 mg/dL (74-99); Non-African American GFR(CKD) >90 (>60 ml/min/1.73 sqM); Potassium 4.1 mmol/L (3.5-5.1); Sodium 136 mmol/L (137-145); Total Bilirubin 0.4 mg/dL (0.2-1.3); Total Protein 7.6 g/dL (6.3-8.2)
[2022-02-26 17:19] LABS: HCG,Quantitative Serum 32.7 mIU/mL
--- NOTE | 2022-02-26 17:39 | US ---
EXAMINATION TYPE: Transabdominal DATE OF EXAM: 02/26/2022 5:27 PM COMPARISON: NONE CLINICAL HISTORY: vaginal bleeding, LMP 01/17/22. Bleeding & cramping x 1 day EXAM PERFORMED: Transabdominal (TA) EXAM MEASUREMENTS: GESTATIONAL AGE / DATING Physician Established: Not yet established Dates by LMP: (5 weeks/5 days) EDC: 10/24/2022 Dates by First Scan: No previous this is first scan Dates by Current Scan for: No IUP seen at this time MATERNAL ANATOMY Uterus: 8.2 x 4.2 x 6.8cm Right Ovary: 3.1 x 1.6 x 1.5cm Left Ovary: 3.8 x 2.8 x 2.6cm Post CDS / Adnexa: wnl Presence of free fluid: no Presence of corpus luteal cyst: left ovary: 2.4 x 2.3 x 2.3cm Presence of subchorionic bleed: no GESTATION / SURVEY IUP: No IUP seen at this time Date of LMP: 01/17/2022 IMPRESSION: Uterus is empty. No adnexal mass or free fluid. This could relate to complete in this patien t with apparent positive test and vaginal bleeding
== END 2022-02-26 18:24 | disposition home or self-care (01) ==
LOC: EC 15:35
DX: O20.9 Hemorrhage in early pregnancy, unspecified (principal); O24.111 Pre-existing type 2 diabetes mellitus, in pregnancy, first trimester; Z3A.01 Less than 8 weeks gestation of pregnancy
CPT/HCPCS: 36415; 76801; 80053; 81001; 84702; 85025; 86900; 86901; 99284

== ENCOUNTER → 2022-02-28 | Outpatient (CLI) | payer BC | END | disposition home or self-care (01) | LOC: LABWHC1 15:27 | PROVIDERS: ATTEND Student in an Organized Health Care Education/Training Program | DX: O20.0 Threatened abortion (principal) | CPT/HCPCS: 36415; 84702 ==

== ENCOUNTER → 2022-03-03 | Outpatient (CLI) | payer BC | END | disposition home or self-care (01) | LOC: LABWHC1 10:40 | PROVIDERS: ATTEND Obstetrics & Gynecology Obstetrics | DX: O20.0 Threatened abortion (principal); Z3A.00 Weeks of gestation of pregnancy not specified | CPT/HCPCS: 36415; 84702 ==

== ENCOUNTER → 2022-03-05 | Outpatient (CLI) | payer BC | END | disposition home or self-care (01) | LOC: LABWHC1 07:48 | PROVIDERS: ATTEND Obstetrics & Gynecology Obstetrics | DX: O20.0 Threatened abortion (principal); Z3A.00 Weeks of gestation of pregnancy not specified | CPT/HCPCS: 36415; 84702 ==

== ENCOUNTER → 2022-03-07 | Outpatient (CLI) | payer BC ==
[~2022-03-07] MED LIST changes: -DEXAMETHASONE SOD PHOSPHATE 10 MG/ML 1 ML VIAL IV ONE; -HEPARIN SODIUM,PORCINE 5,000 UNIT/ML 1 ML VIAL SQ ONE; -LACTATED RINGERS 1,000 ML IV SCH; +METHOTREXATE SODIUM (PF) 25 MG/ML 2 ML VIAL IM NR; -MIDAZOLAM 2 MG/2 ML VIAL IV PRN; -SCOPOLAMINE 1.5MG/72HR PATCH TRANSDERM ONE; -ceFAZolin 2 GM in SODIUM CHLORIDE 0.9% 100 ML IVPB ONE
[2022-03-07 12:14] VITALS: BP 146/92; PULSE 106; RESP 15; TEMP 98.2
== END ==
LOC: PROCWHC3 11:57
PROVIDERS: ATTEND Obstetrics & Gynecology Obstetrics
DX: O00.109 Unspecified tubal pregnancy without intrauterine pregnancy (principal); Z3A.00 Weeks of gestation of pregnancy not specified
CPT/HCPCS: 96372; J9260

== ENCOUNTER → 2022-03-07 | Outpatient (CLI) | payer BC ==
[2022-03-07 20:31] LABS: HGB 13.7 g/dL (12.0-15.0); MCH 32.6 pg (27.0-32.0); MCHC 33.4 g/dL (32.0-37.0); MCV 97.6 fL (80.0-97.0); Mean Platelet Volume 10.3 fL (9.5-12.2); NRBC Per 100 WBC 0 /100 WBCS (0.0-0.0); Platelet Count 397 X 10*3/uL (140-440); RDW 12.5 % (11.5-14.5); WBC 9.57 X 10*3/uL (4.50-10.00)
[2022-03-07 22:06] LABS: African American GFR (CKD) 150.3 (60.0-200.0); Non-African American GFR(CKD) 129.7 (60.0-200.0)
[2022-03-07 22:07] LABS: Blood Urea Nitrogen 5.9 mg/dL (9.0-27.0)
== END | disposition home or self-care (01) ==
LOC: LABWHC1 07:38
PROVIDERS: ATTEND Obstetrics & Gynecology Obstetrics
DX: O00.109 Unspecified tubal pregnancy without intrauterine pregnancy (principal); Z3A.00 Weeks of gestation of pregnancy not specified
CPT/HCPCS: 36415; 82565; 84450; 84460; 84520; 84702; 85027

== ENCOUNTER → 2022-03-10 | Outpatient (CLI) | payer BC | END | disposition home or self-care (01) | LOC: LABWHC1 08:01 | PROVIDERS: ATTEND Obstetrics & Gynecology Obstetrics | DX: O00.109 Unspecified tubal pregnancy without intrauterine pregnancy (principal); Z3A.00 Weeks of gestation of pregnancy not specified | CPT/HCPCS: 36415; 84702 ==

== ENCOUNTER → 2022-03-13 | Outpatient (CLI) | payer BC ==
[2022-03-13 14:32] LABS: HCT 39.6 % (37.2-46.3); HGB 13.2 g/dL (12.0-15.0); MCHC 33.3 g/dL (32.0-37.0); Mean Platelet Volume 10.3 fL (9.5-12.2); NRBC Per 100 WBC 0 /100 WBCS (0.0-0.0); Platelet Count 338 X 10*3/uL (140-440); RDW 12.3 % (11.5-14.5); WBC 7.82 X 10*3/uL (4.50-10.00)
[2022-03-13 15:31] LABS: African American GFR (CKD) 152.6 (60.0-200.0); Blood Urea Nitrogen 8.9 mg/dL (9.0-27.0); Non-African American GFR(CKD) 131.7 (60.0-200.0)
== END | disposition home or self-care (01) ==
LOC: LABWHC1 07:14
PROVIDERS: ATTEND Physician Assistant
DX: O00.109 Unspecified tubal pregnancy without intrauterine pregnancy (principal); Z3A.00 Weeks of gestation of pregnancy not specified
CPT/HCPCS: 36415; 82565; 84450; 84460; 84520; 84702; 85027

== ENCOUNTER → 2022-03-20 | Outpatient (CLI) | payer BC | END | disposition home or self-care (01) | LOC: LABWHC1 09:14 | PROVIDERS: ATTEND Obstetrics & Gynecology Obstetrics | DX: O00.90 Unspecified ectopic pregnancy without intrauterine pregnancy (principal); Z3A.00 Weeks of gestation of pregnancy not specified | CPT/HCPCS: 36415; 84702 ==

== ENCOUNTER → 2022-03-28 | Outpatient (CLI) | payer BC | END | disposition home or self-care (01) | LOC: LABWHC1 11:54 | PROVIDERS: ATTEND Obstetrics & Gynecology Obstetrics | DX: O00.109 Unspecified tubal pregnancy without intrauterine pregnancy (principal); Z3A.00 Weeks of gestation of pregnancy not specified | CPT/HCPCS: 36415; 84702 ==

== ENCOUNTER → 2022-04-10 | Outpatient (CLI) | payer BC | END | disposition home or self-care (01) | LOC: LABWHC1 17:39 | PROVIDERS: ATTEND Obstetrics & Gynecology Obstetrics | DX: O00.109 Unspecified tubal pregnancy without intrauterine pregnancy (principal); Z3A.00 Weeks of gestation of pregnancy not specified | CPT/HCPCS: 36415; 84702 ==

== ENCOUNTER → 2022-07-24 | Outpatient (CLI) | payer BC ==
[2022-07-24 23:28] LABS: HCT 36.9 % (37.2-46.3); HGB 12.8 g/dL (12.0-15.0); MCH 33.5 pg (27.0-32.0); MCHC 34.7 g/dL (32.0-37.0); MCV 96.6 fL (80.0-97.0); Mean Platelet Volume 10.1 fL (9.5-12.2); NRBC Per 100 WBC 0 /100 WBCS (0.0-0.0); Platelet Count 408 X 10*3/uL (140-440); RBC 3.82 X 10*6/uL (4.10-5.20); RDW 12.8 % (11.5-14.5); WBC 9.81 X 10*3/uL (4.50-10.00)
[2022-07-25 00:37] LABS: Appearance,Urine Turbid (Clear); Bilirubin,Urine Negative (Negative); Blood,Urine Negative (Negative); Color,Urine Yellow (Yellow); Ketones,Urine Trace mg/dL (Negative); Nitrite,Urine Negative (Negative); PH, Urine 5.5 (5.0-8.0); Specific Gravity,Urine 1.026 (1.001-1.030); Urobilinogen,Urine 0.2 (0.2,1.0)
[2022-07-25 00:38] LABS: Bacteria,Urine None Seen /HPF (None Seen); Calcium Oxalate Crystals,Urine Present /LPF (None Seen)
[2022-07-25 01:12] LABS: Hepatitis B Surface Antigen Nonreactive (Nonreactive)
[2022-07-25 14:12] LABS: HIV 2 AB Non-Reactive (Non-Reactive); HIV AB P24 Non-Reactive (Non-Reactive); HIV P24 AG Non-Reactive (Non-Reactive)
== END | disposition home or self-care (01) ==
LOC: LABWHC1 15:07
PROVIDERS: ATTEND Obstetrics & Gynecology Obstetrics
DX: Z34.81 Encounter for supervision of other normal pregnancy, first trimester (principal); Z3A.00 Weeks of gestation of pregnancy not specified
CPT/HCPCS: 36415; 81001; 83036; 85027; 86762; 86780; 86850; 86900; 86901; 87086; 87340; 87390

== ENCOUNTER 2023-01-14 13:29 | Outpatient (CLI) | payer BC ==
[2023-01-14 14:18] LABS: Basophils % (A) 1 %; Eosinophils # (A) 0.1 k/uL (0-0.7); Eosinophils % (A) 1 %; HGB 10.6 gm/dL (11.4-16.0); Lymphocytes # (A) 1.7 k/uL (1.0-4.8); Lymphocytes % (A) 32 %; MCHC 34.1 g/dL (31.0-37.0); MCV 93.7 fL (80.0-100.0); Mean Platelet Volume 10.5; Monocytes # (A) 0.2 k/uL (0-1.0); Monocytes % (A) 5 %; Neutrophils # (A) 3.2 k/uL (1.3-7.7); Neutrophils % (A) 60 %; Platelet Count 227 k/uL (150-450); RBC 3.31 m/uL (3.80-5.40); RDW 13.5 % (11.5-15.5); WBC 5.4 k/uL (3.8-10.6)
[2023-01-14 14:23] LABS: Appearance,Urine Cloudy (Clear); Bacteria,Urine Occasional /hpf; Bilirubin,Urine 1+ (Negative); Blood,Urine Negative (Negative); Color,Urine Yellow; Glucose,Urine (UA) Negative (Negative); Hyaline Casts,Urine 5 /lpf (0-2); Ketones,Urine Trace (Negative); Leukocyte Esterase,Urine Large (Negative); Mucus,Urine Many /hpf; Nitrite,Urine Negative (Negative); Protein,Urine 2+ (Negative); RBC,Urine 3 /hpf (0-5); Specific Gravity,Urine 1.029 (1.001-1.035); Squamous Epithelial Cell,Urine 10 /hpf (0-4); WBC,Urine 10 /hpf (0-5)
[2023-01-14 14:42] LABS: ALT 14 U/L (4-34); AST 25 U/L (14-36); African American GFR (CKD) >90 (>60 ml/min/1.73 sqM); Blood Urea Nitrogen 9 mg/dL (7-17); LDH 394 U/L (313-618); Non-African American GFR(CKD) >90 (>60 ml/min/1.73 sqM); Uric Acid 7.4 mg/dL (3.7-7.4)
[2023-01-14 15:38] LABS: Protein/Creatinine Ratio,Urine 0.082
[2023-01-14 16:31] VITALS: BP 142/91; PULSE 112; RESP 16; TEMP 97.4
--- NOTE | 2023-03-08 10:10 | P.MSEPDOC ---
Presenting Problems - Arrival Data Date of Arrival on Unit: 01/14/23 Time of Arrival on Unit: 13:29 Mode of Transport: Ambulatory - Complaint OB-Reason for Admission/Chief Complaint: PIH Comment: Valentino Lewis, 22yo pt [address] Conner, 34/ presents with c/o elevated B/Ps. at home and swelling in her hands and feet. Patient denies bleeding or loss of fluid Pt. deniies dizziness or visual disturbances. Patient says she has a "tolerable" headache in. her temples, rates headache a 1-2 on scale of 0-10. Medical History - Information : 3 Para: 1 Term: 1 : 0 Abortions: Spontaneous or Elective: 1 Number of Living Children: 1 - Gestational Age Gestational Age by KEVIN (wks/days): 35 Weeks and 6 Days - History Complications: Other Comment: type 2 DM Review of Systems - Review of Systems Constitutional: No problems Breast: No problems ENT: No problems Cardiovascular: No problems Respiratory: No problems Gastrointestinal: No problems Genitourinary: No problems Musculoskeletal: No problems Neurological: No problems Skin: No problems Vital Signs - Temperature Temperature: 97.4 F Temperature Source: Oral - Pulse Right Sitting Pulse Rate: 112 Pulse Assessment Method: Auscultation - Respirations Respiratory Rate: 16 Oxygen Delivery Method: Room Air O2 Sat by Pulse Oximetry: 97 - Blood Pressure Right Arm Sitting Blood Pressure: 142/91 Blood Pressure Mean: 108 Blood Pressure Source: Automatic Cuff Medical Screen Scoring - Assessment - Baby A Baseline FHR: 150 Heart Rate - NICHD Category: Category I (Normal) NST: Reactive Physician Notification - Physician Notified Physician Notified Date: 01/14/23 Physician Notified Time: 13:56 Physician: Tami Conner New Order Received: Yes Maternal Triage Index - Maternal Triage Index Presenting for scheduled procedure w/no complaint: No - Stat/Priority 1 Stat Priority 1: No - Urgent/Priority 2 Urgent Priority 2: No - Prompt/Priority 3 Prompt Priority 3: Yes Criteria Met for Priority 3: 35/5 presents with c/o elevated B/Ps. at home and swelling in her hands and feet. Patient denies bleeding or loss of fluid Pt. deniies dizziness or visual disturbances. Patient says she has a "tolerable" headache in. her temples, rates headache a 1-2 on scale of 0-10. Disposition - Disposition OB Disposition: Discharge to home, Written follow up instructions reviewed Discharge Date: 01/14/23 Discharge Time: 16:17 I agree with the RN Medical Screening Exam: Yes Case reviewed; plan agreed upon as documented in EMR&OBIX.: Yes Diagnosis: DEHYDRATION
== END 2023-01-14 16:17 | disposition home or self-care (01) ==
LOC: FBPOP 13:29
PROVIDERS: ATTEND Obstetrics & Gynecology Obstetrics
DX: O99.283 Endocrine, nutritional and metabolic diseases complicating pregnancy, third trimester (principal); E86.0 Dehydration; O24.913 Unspecified diabetes mellitus in pregnancy, third trimester; E11.9 Type 2 diabetes mellitus without complications; Z3A.35 35 weeks gestation of pregnancy; Z79.82 Long term (current) use of aspirin; Z79.4 Long term (current) use of insulin
CPT/HCPCS: 36415; 59025; 81001; 82565; 82570; 83615; 84156; 84450; 84460; 84520; 84550; 85025; 99215

== ENCOUNTER → 2025-03-08 | Outpatient (CLI) | payer BC, OTHER | END | disposition home or self-care (01) | LOC: LABWHC1 12:04 | PROVIDERS: ATTEND Obstetrics & Gynecology Obstetrics | DX: O24.419 Gestational diabetes mellitus in pregnancy, unspecified control (principal); Z3A.00 Weeks of gestation of pregnancy not specified | CPT/HCPCS: 36415; 83036; 84144; 84702 ==

== ENCOUNTER → 2025-03-10 | Outpatient (CLI) | payer BC, OTHER | END | disposition home or self-care (01) | LOC: LABWHC1 11:48 | PROVIDERS: ATTEND Obstetrics & Gynecology Obstetrics | DX: O24.419 Gestational diabetes mellitus in pregnancy, unspecified control (principal); Z3A.00 Weeks of gestation of pregnancy not specified | CPT/HCPCS: 36415; 83036; 84144; 84702; 86850; 86900; 86901 ==